=== PATIENT | male | born 1955 | race Caucasian/White ===

== ENCOUNTER → 2016-12-22 | Outpatient (CLI) | payer BC ==
[~2016-12-22] MED LIST: ACET650T67 PO; AMLO5TAB2 PO; ASPI-99 PO; ASPI81TA11 PO; HYDR-3580 PO; MEDI220T PO; OMEP40CA2 PO; PRIN5TAB PO; SIMV20 PO; TOPR25TA2 PO
== END ==
LOC: CPRE 08:44
PROVIDERS: ATTEND Orthopaedic Surgery
DX: Z01.812 Encounter for preprocedural laboratory examination (principal); M17.12 Unilateral primary osteoarthritis, left knee; M79.609 Pain in unspecified limb; I10 Essential (primary) hypertension

== ENCOUNTER 2017-01-02 08:30 | Inpatient (IN) | payer BC ==
[~2017-01-02] VITALS: Ht 188 cm; Wt 114.1 kg
[~2017-01-02 08:30] MED LIST changes: -ASPI-99 PO; -HYDR-3580 PO; -PRIN5TAB PO; -SIMV20 PO; -TOPR25TA2 PO
[2017-01-22] MEDS ORDERED: CHLORHEXIDINE GLUCONATE 2 % 1 PACK (2 CLOTHS) TOPICAL PRN (08:00)
[2017-01-22] MEDS ORDERED: POVIDONE IODINE 5% (ANTISEPSIS KIT) 4 APPLICATIONS EACH NARE PRN (08:00)
[2017-01-22] MEDS ORDERED: LACTATED RINGER'S 1000 ML IV PRN (08:00)
[2017-01-22] MEDS ORDERED: INSULIN HUMAN REGULAR 1,000 UNITS/10 ML VIAL SQ PRN (08:00)
[2017-01-22] MEDS ORDERED: SODIUM CHLORID 0.9% 500 ML IV PRN (08:00)
[2017-01-22] MEDS ORDERED: METOPROLOL TARTRATE 25 MG TAB PO PRN (08:00)
[2017-01-22] MEDS ORDERED: SODIUM CHLORIDE 0.9% IV SCH ×2 (08:15→11:15)
[2017-01-22] MEDS ORDERED: ceFAZolin 2 GM PREMIX 50 ML IV SCH (08:15)
[2017-01-22] MEDS ORDERED: TRANEXAMIC ACID IV SCH ×2 (08:15→11:15)
[2017-01-22] MEDS ORDERED: CHLORHEXIDINE GLUCONATE 4% SOLN 120 ML BTL TOPICAL SCH (08:15)
[2017-01-22 08:34] LABS: AUTOMATED NEUTROPHIL # 6.3 TH/MM3 (1.8-7.7); BASOPHIL # 0.1 TH/MM3 (0-0.2); BASOPHIL % 0.5 % (0.0-2.0); EOSINOPHIL # 0.5 TH/MM3 (0-0.4); EOSINOPHIL % 4.6 % (0.0-4.0); HEMATOCRIT 38.5 % (39.0-51.0); LYMPH % 22.1 % (9.0-44.0); LYMPHOCYTE # 2.2 TH/MM3 (1.0-4.8); MEAN CELL VOLUME 83.2 FL (80.0-100.0); MEAN CORPUSCULAR HEMOGLOBIN 27.9 PG (27.0-34.0); MEAN CORPUSCULAR HGB CONC 33.6 % (32.0-36.0); MONO % 9.2 % (0.0-8.0); NEUT % 63.6 % (16.0-70.0); PLATELET COUNT 250 TH/MM3 (150-450); RED BLOOD COUNT 4.63 MIL/MM3 (4.50-5.90); RED CELL DISTRIBUTION WIDTH 13.6 % (11.6-17.2); WHITE BLOOD COUNT 9.9 TH/MM3 (4.0-11.0)
[2017-01-22 08:36] LABS: HEMO FLAGS AUTO DIFF
[2017-01-22] MEDS ORDERED: GENTAMICIN SULFATE 80 MG/2 ML VIAL ONE (08:42)
[2017-01-22 09:36] LABS: BANDS 9 % (0-6); EOSINOPHILS 3 % (0-4); METAMYELOCYTES 2 % (0-1); NEUTROPHIL # MANUAL DIFF 7.1 TH/MM3 (1.8-7.7); PLATELET ESTIMATE SMEAR NORMAL (NORMAL); PLATELET MORPHOLOGY NORMAL (NORMAL); POLYS (SEG NEUTROPHILS) 61 % (16-70); WBC DIFF SAMPLE 100
[2017-01-22 09:37] LABS: SCAN/DIFF FINAL DIFF MANUAL
[2017-01-22] MEDS ORDERED: SODIUM CHLORIDE 0.9% FLUSH 5 ML FLUSH IVF PRN (09:45)
[2017-01-22] MEDS ORDERED: ONDANSETRON HCL 4 MG/2 ML VIAL IVP PRN (09:45)
[2017-01-22] MEDS ORDERED: ACETAMINOPHEN/HYDROcodone 325 MG/7.5 MG TAB PO PRN (09:45)
[2017-01-22] MEDS ORDERED: TRANEXAMIC ACID INJ 0 MG in SODIUM CHLORIDE 0.9% INJ 100 ML IV SCH (09:45)
[2017-01-22] MEDS ORDERED: Post-op Orders (for Pharmacy) MISC XX ONE (09:45)
[2017-01-22] MEDS ORDERED: MAGNESIUM HYDROXIDE SUSP 30 ML CUP PO PRN (09:45)
[2017-01-22] MEDS ORDERED: MORPHINE SULFATE 4 MG/ML INJ IV PUSH PRN (09:45)
--- NOTE | 2017-01-22 09:46 | HHI.FF ---
Face to Face Verification Diagnosis: (1) Status post total left knee replacement Physical Therapy Gait training Knee: Total knee, Protocol: Left, Gait training, Full weight bearing Left LE Weight Bearing: WB as tolerated Left LE Range of Motion: Active ROM (AROM, AAROM, PROM. ROM goal is 0 to 135 degrees. ROM in OR went to 0 to 140 degrees.) Nursing Nursing: Dressing changes Dressing Changes: Daily dressing change, Coverderm/Primapore Additional Instructions Remove steristrips on postop day 14. I have seen patient Edgard Baxter on 01/22/17. My clinical findings support the need for the requested home health care services because: Ltd mobility - disease progression Limited ability to care for self High risk of falls I certify that my clinical findings support that this patient is homebound because: Post-op weakness Unsteady gait/balance Unsafe to leave home unassisted Anna Charles MD (Charles) Jan 22, 2017 09:46
[2017-01-22] MEDS ORDERED: ASPI-99 PO (09:49)
[2017-01-22] MEDS ORDERED: ACETAMINOPHEN 1000 MG/100 ML 100 ML IV ONE (09:52)
[2017-01-22] MEDS ORDERED: FAMOTIDINE 20 MG/2 ML VIAL ONE (09:52)
[2017-01-22] MEDS: EXPAREL PERI-ARTICULAR INJECTION (TOTAL VOL. 100 ML) P-ARTICULR SCH ×4 (10:32→11:03)
[2017-01-22] MEDS ORDERED: PROPOFOL 200 MG/20 ML AMP ONE (11:43)
[2017-01-22] MEDS ORDERED: PHENYLEPH/NS 1000 MCG/10 ML SYR IV ONE (12:00)
[2017-01-22] MEDS ORDERED: DEXAMETHASONE SOD PHOS 4 MG/ML VIAL IV ONE (12:00)
[2017-01-22] MEDS ORDERED: ePHEDrine/NS 25 MG/5 ML SYR IV ONE (12:00)
[2017-01-22] MEDS ORDERED: PROPOFOL 200 MG/20 ML AMP IV ONE (12:00)
[2017-01-22] MEDS ORDERED: MIDAZOLAM HCL 2 MG/2 ML VIAL IV ONE (12:00)
[2017-01-22] MEDS ORDERED: DO NOT ADM ANY ANTICOAGULANT DRUGS PRN (13:07)
[2017-01-22] MEDS: LACTATED RINGER'S 1000 ML INJ 1,000 ML IV SCH ×2 (13:15→19:58)
[2017-01-22] MEDS ORDERED: *MEPERIDINE 25 MG INJ VIAL PERIprocedural Use ONLY ONE (13:31)
--- NOTE | 2017-01-22 13:33 | MP ---
cc: Grisel HOWE. DATE OF SURGERY 01/22/2017 PREOPERATIVE DIAGNOSIS Primary osteoarthritis left knee. POSTOPERATIVE DIAGNOSIS Primary osteoarthritis left knee. OPERATION PERFORMED Left total knee arthroplasty with [place] Triathlon prosthesis (uncemented). SURGEON Anna Howe MD BRIM POUNCER Reza Michael CSFA ANESTHESIA Spinal with supplemental adductor canal block and local and supplemental general by LMA. INDICATIONS AND FINDINGS This 61-year-old man has had left knee pain for the past 5 years. He had an anterior cruciate ligament tear in 2003 which was treated nonoperatively by another surgeon. He has had progressive increase in pain and has difficulty walking more than about 10 feet because of the pain. He has relief when limiting weightbearing. He has stiffness in the knee, had diffuse pain medially and laterally. He has trouble standing from a seated position and ascending and descending stairs. Treatment has included anti-inflammatory agents, analgesics and activity modification, intraarticular corticosteroid injections, Synvisc injections, bracing, ambulatory aids, physical therapy and weight loss. He has continued to have worsening of his condition in spite of these efforts. Physical findings showed some genu varum with palpable osteophytes medially and tenderness on range of motion with crepitation on range of motion. There is medial laxity. X-rays show loss of joint space to [id number] in the medial compartment with osteophytes medially and in the patellofemoral joint. PROSTHESIS USED [place] Triathlon prosthesis. The femur as a size 8 uncemented. The tibia is a size 8 Tritanium baseplate with a cruciate-retaining X3 polyethylene spacer, 9 mm in thickness. The patella was a size 40 asymmetric Tritanium backed. PROCEDURE The patient was brought to the clean-air operating suite and a spinal anesthetic was administered. He then had an adductor canal block carried out. He was then positioned in a supine position on the operating table with a bolster under the left hip. A pneumatic tourniquet was applied to the left thigh. The limb was then prepped with alcohol, Hibiclens and Chloraprep and draped in the usual manner with the knee draped free. An appropriate time-out procedure was carried out. Local anesthesia was administered in the incision site prior to making the incision. Incision was then made from about three fingerbreadths above the superior medial pole of patella down to the tibial tubercle on the medial side. This was deepened to the retinacular structures which were exposed medially and laterally. Medial retinacular incision was made from the superior and medial pole of the patella down to the tibial tubercle and up into the quadriceps tendon, splitting it longitudinally in the medial one-third. The patella was reflected. The fat pad was debulked. Medial and lateral dissection was carried out. The remnants of the anterior cruciate ligament were excised. Osteophytes were trimmed from the intercondylar notch area. The posterior surface of the patella was excised using the oscillating saw taking care to prevent injury to associated structures. A patella protector was applied. The patella slipped into the lateral gutter. The femur was then prepared using fenestrations first into the distal femur and proximal tibia for intermedullary referencing guides. The distal femoral cutting guide and jig was assembled for a 5-degree, 8-mm cut. This was stabilized with pins. The jig was removed. The distal femoral cut was completed with the oscillating saw. Sizing guide was positioned in place and stabilized with pins along Whitesides line in the epicondylar axis. The size was determined to be a size 8. The four-in-one cutting block was positioned in place and the anterior and posterior cuts were made followed by posterior and anterior chamfer cuts. The remainder of the osteophytes were trimmed from the femur. Following this, medial and lateral meniscectomies were initiated. The proximal tibial cutting guide was then positioned appropriately and stabilized for rotation. The depth of cut was verified with a stylus off the high side. The tibial cutting guide was stabilized with pins. The depth of cut was then verified and adjusted accordingly. The proximal tibial cut was then made after removal of the jig. After completing the proximal tibial cut appropriately, the size was determined to be a size 8 tibia. The tibial baseplate trial with a 9 mm spacer was inserted. The femoral component was impacted into place. The knee was extended. This appeared appropriate. With the knee in extension, the tibial baseplate was stabilized with pins according to appropriate rotation. The patella drill guide was positioned in place for the 40-mm patella. Drill holes were made. The trial patella was then positioned in place. The knee was taken through a range of motion which was easily 0 degrees extension to 140 degrees of flexion with excellent tracking and excellent stability. Femoral drill holes were made. The femur and patella trials were removed. The tibial spacer was removed. The bone plugs were placed in the distal femur and proximal tibia. The tibial punch was impacted through its guide on the tibial baseplate trial. After removing this, the tibial drill guide was positioned in place and drill holes made. The size 8 tibial baseplate was chosen. Cut ends of bone were cleaned with pulse lavage. A baseplate was then impacted into place and seated appropriately after doing curettage and bone grafting of a subchondral cyst posteriorly. The tibial spacer was inserted onto the baseplate. This was seated appropriately. The femoral component was then impacted into place on the distal femur after cleaning with pulse lavage. The patella was likewise positioned on the posterior aspect of the patella and stabilized with the patella vice. The range of motion was checked and was easily 0 degrees extension to 140 degrees of flexion with excellent tracking and excellent stability. Drains were brought out the superior and lateral aspect of the suprapatellar pouch. Wound closure then commenced using 0 Vicryl interrupted [id number] sutures for the retinacular and capsular structures, 2-0 Vicryl interrupted simple sutures with buried knots for the subcutaneous tissues and 4-0 Monocryl continuous subcuticular closure for the skin. The wound was dressed with Steri-Strips followed by dry dressing, sterile Sof-Rol, cooling pad, further sterile Sof-Rol and Tony bandage from the base of the toe to midthigh. The patient was transferred from the operating room to the recovery room in satisfactory condition having tolerated the procedure well. COUNTS Correct. SPECIMENS None. ESTIMATED BLOOD LOSS 250 mL. MD KOSATS Mendoza/DAINA /12:53 PM /1:15 PM
[2017-01-22] MEDS: KETOROLAC TROMETHAMINE 30 MG/ML (IVP) VIAL IVP SCH ×3 (13:35→21:50)
--- NOTE | 2017-01-22 14:15 | RADRPT ---
EXAM DATE/TIME: 01/22/2017 13:49 [facility] COMPARISON: No previous studies available for comparison. INDICATIONS : Post op left knee MEDICAL HISTORY : None. SURGICAL HISTORY : left knee replaced ENCOUNTER: Initial ACUITY: 1 day PAIN SCORE: 7/10 LOCATION: Left knee FINDINGS: Examination of the knee demonstrates arthroplasty in satisfactory position. The alignment is anatomic . CONCLUSION: Post surgical changes as above. Hakeem Santana MD on January 22, 2017 at 14:13 Board Certified Radiologist. This report was verified electronically.
--- NOTE | 2017-01-22 16:59 | PD.CONS ---
HPI Service [facility] Consult Requested By Orthopedic surgery. Reason for Consult Medical management. Primary Care Physician Non-Staff Diagnoses: (1) Primary osteoarthritis of left knee History of Present Illness Mr. Baxter is a pleasant 61 year old male with a history of hypertension, Afib s /p ablation who underwent left total knee arthroplasty. Patient has had left knee pain for several years and despite conservative managements, he continued to have worsening knee pain which led to this elective surgery. Patient was seen in the PACU. Post surgery, he is doing well, hemodynamically stable. No acute concerns. He reports he had atrial fibrillation but underwent ablation and currently does not take any rate control, rhythm control medications. He does not take any anti-coagulation either. Dr. Cote (EP) is his technical lead. He denies any chest pain, SOB, fever, chills. Denies any changes in bowel or bladder habits. Review of Systems Except as stated in HPI: all other systems reviewed are Neg Past Family Social History Allergies: Coded Allergies: Zrtjgov-Een-Aoj Reductase Inhibitor (Verified Allergy, Severe, Cramping, 01/22/17) abdominal cramping and upset lisinopril (Verified Allergy, Severe, Blurred Vision, 01/22/17) simvastatin (Verified Allergy, Severe, Cramping, 01/22/17) abdominal issues Past Medical History Hypertension Afib s/p ablation. Osteoarthritis of the left knee. Past Surgical History Right ring finger surgery. Reported Medications Current Medications Medications (Trade) Dose Ordered Sig/Lucille Route Start Time Stop Time Status Last Admin Lactated Ringer's 1,000 ml @ 30 mls/hr Q24H PRN IV 01/22/17 08:00 01/25/17 07:59 01/22/17 08:00 Sodium Chloride 500 ml @ 30 mls/hr [id number] PRN IV 01/22/17 08:00 01/25/17 07:59 (Lopressor) 25 mg TRAY ROOM WORKER PRN PO 01/22/17 08:00 01/25/17 07:59 (Betadine 5% Antisepsis Kit) 1 applic T[employer] ROOM WORKER PRN EACH NARE 01/22/17 08:00 01/25/17 07:59 01/22/17 08:15 (Chlorhexidine 2% Cloth) 3 pack T[employer]ER PRN TOPICAL 01/22/17 08:00 01/25/17 07:59 01/22/17 07:30 (NovoLIN R INJ) See Protocol Table ... T[employer] ROOM WORKER PRN SQ 01/22/17 08:00 01/25/17 07:59 (Hibiclens 4% Top Soln) 1 applic ONCE TOPICAL 01/22/17 08:15 01/25/17 08:14 01/22/17 08:00 Cefazolin Sodium/ Dextrose 50 ml @ 100 mls/hr TRAY ROOM WORKER IV 01/22/17 08:15 01/25/17 08:14 01/22/17 11:00 Lactated Ringer's 1,000 ml @ 80 mls/hr [id number] IV 01/22/17 09:40 01/22/17 13:15 (NS Flush) 2 ml UNSCH PRN IVF 01/22/17 09:45 (NS Flush) 2 ml BID IVF 01/22/17 21:00 Cefazolin Sodium 1000 mg/Sodium Chloride 100 ml @ 200 mls/hr Q6H IV 01/22/17 16:00 01/23/17 04:29 01/22/17 21:50 (Morphine Inj) 4 mg Q3H PRN IV PUSH 01/22/17 09:45 ([place]ega 7.5-325 Mg) 1 tab Q4H PRN PO 01/22/17 09:45 01/22/17 21:50 (Vega 7.5-325 Mg) 2 tab Q4H PRN PO 01/22/17 09:45 (Toradol Inj) 15 mg Q6H IVP 01/22/17 11:00 01/24/17 05:01 01/22/17 21:50 (Zofran Inj) 4 mg Q6H PRN IVP 01/22/17 09:45 (Colace) 100 mg BID PO 01/23/17 21:00 (Ambien) 5 mg HS PRN PO 01/22/17 21:00 (Milk Of Magnesia Liq) 30 ml DAILY PRN PO 01/22/17 09:45 (Ecotrin Ec) 81 mg BID PO 01/23/17 12:00 (Norvasc) 5 mg BID PO 01/22/17 21:00 01/22/17 20:01 (Protonix) 40 mg DAILY PO 01/23/17 09:00 Miscellaneous Information ALL NURSING DEPARTKS... [facility] PRN .XX 01/22/17 13:07 01/23/17 13:06 Family History Mother currently have breast cancer. Social History Patient denies using tobacco or illicit drugs. He drinks beer occasionally. Physical Exam Vital Signs Vital Signs Date Time Temp Pulse Resp B/P (MAP) Pulse Ox O2 Delivery O2 Flow Rate FiO2 01/22/17 14:00 62 12 136/80 (98) 100 Nasal Cannula 2 01/22/17 13:45 60 12 124/78 (93) 100 Nasal Cannula 2 01/22/17 13:30 69 12 134/69 (90) 97 Nasal Cannula 2 01/22/17 13:15 63 12 100/59 (73) 97 Nasal Cannula 2 01/22/17 13:12 97.6 61 12 105/57 (73) 97 01/22/17 08:19 98.5 73 16 140/83 (102) 98 Physical Exam GENERAL: This is a well-nourished, well-developed patient, in no apparent distress. SKIN: No rashes, ecchymoses or lesions. Warm and dry. HEAD: Atraumatic. Normocephalic. No temporal or scalp tenderness. EYES: Pupils equal round and reactive. No injection or drainage. ENT: Nose without bleeding, purulent drainage or septal hematoma. Airway patent. NECK: Trachea midline. No lymphadenopathy. Supple, nontender, no meningeal signs. CARDIOVASCULAR: Regular rate and rhythm without murmurs, gallops, or rubs. No JVD. RESPIRATORY: Clear to auscultation. Breath sounds equal bilaterally. No wheezes , rales, or rhonchi. GASTROINTESTINAL: Abdomen soft, non-tender, nondistended. No guarding. MUSCULOSKELETAL: Extremities without clubbing, cyanosis, or edema. Left lower ext s/p knee arthroplasty. Able to move all toes. NEUROLOGICAL: Awake and alert. Cranial nerves II through XII intact. No focal neurological deficits. Normal speech. Laboratory Laboratory Tests Test 01/22/17 08:12 White Blood Count 9.9 Red Blood Count 4.63 Hemoglobin 12.9 Hematocrit 38.5 Mean Corpuscular Volume 83.2 Mean Corpuscular Hemoglobin 27.9 Mean Corpuscular Hemoglobin Concent 33.6 Red Cell Distribution Width 13.6 Platelet Count 250 Mean Platelet Volume 8.3 Neutrophils (%) (Auto) 63.6 Lymphocytes (%) (Auto) 22.1 Monocytes (%) (Auto) 9.2 Eosinophils (%) (Auto) 4.6 Basophils (%) (Auto) 0.5 Neutrophils # (Auto) 6.3 Lymphocytes # (Auto) 2.2 Monocytes # (Auto) 0.9 Eosinophils # (Auto) 0.5 Basophils # (Auto) 0.1 CBC Comment AUTO DIFF Differential Total Cells Counted 100 Neutrophils % (Manual) 61 Band Neutrophils % 9 Lymphocytes % 13 Monocytes % 12 Eosinophils % 3 Neutrophils # (Manual) 7.1 Metamyelocytes 2 Differential Comment FINAL DIFF MANUAL Platelet Estimate NORMAL Platelet Morphology Comment NORMAL Red Cell Morphology Comment NORMAL Result Diagram: 01/22/17811 Imaging Last Impressions Knee X-Ray 01/22/17939 Signed Impressions: Service Date/Time: Sunday, January 22, 2017 13:49 - CONCLUSION: Post surgical changes as above. Hakeem Santana MD Assessment and Plan Problem List: (1) Primary osteoarthritis of left knee ICD Code: M17.12 - Unilateral primary osteoarthritis, left knee (2) Hx of atrial fibrillation, no current medication ICD Code: Z86.79 - Personal history of other diseases of the circulatory system (3) HTN (hypertension) ICD Code: I10 - Essential (primary) hypertension Assessment and Plan Mr. Baxter is a pleasant 61 year old male with a history of HTN, Afib s/p ablation who underwent elective left total knee arthroplasty today. Patient is doing well post surgery. - Left knee osteoarthritis - s/p left total knee arthroplasty. - Vega, Morphine PRN for pain. - Bowel regimen ordered. - Aspirin 81mg BID starting 01/23/2017. - Hypertension - Amlodipine 5mg BID. - Currently normotensive. - GERD - continue PPI. - History of Afib s/p Ablation - Follows up with Dr. Cote (EP). - Currently does not require any anti-coagulation or rate/rhythm control meds. Full code. Aspirin. Thank you for the consult. We will continue to follow this patient with you. Jayson Fraser DO Jan 22, 2017 16:59
[2017-01-22 19:15] VITALS: BP 141/82; PULSE 86; RESP 18; TEMP 97.6; O2SAT 96
[2017-01-22] MEDS: amLODIPine BESYLATE 5 MG TAB PO SCH (20:01)
[2017-01-22] MEDS: SODIUM CHLORIDE 0.9% FLUSH 5 ML FLUSH IVF SCH (20:05)
[2017-01-22] MEDS ORDERED: ZOLPIDEM TARTRATE 5 MG TAB PO PRN (21:00)
[2017-01-22] MEDS: ACETAMINOPHEN/HYDROcodone 325 MG/7.5 MG TAB PO PRN (21:50)
[2017-01-22 23:40] VITALS: BP 128/71; PULSE 81; RESP 18; TEMP 98.2; O2SAT 99
[2017-01-23] MEDS: KETOROLAC TROMETHAMINE 30 MG/ML (IVP) VIAL IVP SCH ×2 (03:55→12:40)
[2017-01-23 04:00] VITALS: BP 128/76; PULSE 73; RESP 18; TEMP 97.1
[2017-01-23 05:01] VITALS: BP 128/76; PULSE 73; RESP 18; TEMP 97.1; O2SAT 98
--- NOTE | 2017-01-23 06:25 | PD.ORT.PN ---
Subjective Post Op Day #: 1 Subjective Remarks He was only OOB with PT yesterday. He has not been OOB since then. There is not too much pain. Range of Motion -15 to 90 degrees. Distance Walked 15 sidesteps. Objective Vitals Vital Signs Date Time Temp Pulse Resp B/P (MAP) Pulse Ox O2 Delivery O2 Flow Rate FiO2 01/23/17 04:00 97.1 73 18 128/76 (93) 01/22/17 23:40 98.2 81 18 128/71 (90) 99 01/22/17 19:15 97.6 86 18 141/82 (101) 96 01/22/17 18:30 85 12 127/79 (95) 97 Room Air 01/22/17 17:30 90 12 123/90 (101) 99 Nasal Cannula 2 01/22/17 16:30 98.1 88 12 131/83 (99) 100 Nasal Cannula 2 01/22/17 15:30 73 12 124/76 (92) 99 Nasal Cannula 2 01/22/17 14:30 66 12 117/85 (96) 97 Nasal Cannula 2 01/22/17 14:15 68 12 126/80 (95) 100 Nasal Cannula 2 01/22/17 14:00 62 12 136/80 (98) 100 Nasal Cannula 2 01/22/17 13:45 60 12 124/78 (93) 100 Nasal Cannula 2 01/22/17 13:30 69 12 134/69 (90) 97 Nasal Cannula 2 01/22/17 13:15 63 12 100/59 (73) 97 Nasal Cannula 2 01/22/17 13:12 97.6 61 12 105/57 (73) 97 01/22/17 08:19 98.5 73 16 140/83 (102) 98 I/O 01/22/17 01/22/17 01/22/17 01/23/17 01/23/17 01/23/17 07:00 15:00 23:00 07:00 15:00 23:00 Intake Total 1500 ml 671 ml 1100 ml Output Total 1100 ml 470 ml 20 ml Balance 400 ml 201 ml 1080 ml Intake Oral 360 ml IV Total 311 ml 1100 ml Other 1500 ml Output Urine Total 900 ml 350 ml Drainage Total 120 ml 20 ml Other 200 ml # Bowel Movements 0 Result Diagram: 01/22/17 0812 Imaging Last 24 hours Impressions Knee X-Ray 01/22/17 0940 Signed Impressions: Service Date/Time: Sunday, January 22, 2017 13:49 - CONCLUSION: Post surgical changes as above. Hakeem Santana MD Objective Remarks He is resting comfortably, supine in bed in the CPM. The neurovascular status is intact. The dressing is dry and intact. Assessment & Plan Ortho Post Op Day #: 1 Problem List: (1) Status post total left knee replacement ICD Codes: Z96.652 - Presence of left artificial knee joint Plan: Continue postop care and PT. Assessment and Plan Condition: Good. Orthopaedically stable. DVT prophylaxis: TEDs, sequentials, resume ASA. Discharge plans: Home with [facility]. Has appointment. Rx: [place] 7.5/325. Anna Charles MD (Charles) Jan 23, 2017 06:25
[2017-01-23] MEDS ORDERED: HYDR-3580 PO (06:37)
[2017-01-23 06:59] LABS: HEMATOCRIT 33.4 % (39.0-51.0); REVIEW FLAG FINAL
[2017-01-23 08:00] VITALS: BP 129/74; PULSE 72; RESP 18; TEMP 96.3; O2SAT 97
[2017-01-23] MEDS ORDERED: PANTOPRAZOLE SOD 40 MG DELAYED RELEASE TAB PO SCH (09:00)
[2017-01-23] MEDS: SODIUM CHLORIDE 0.9% FLUSH 5 ML FLUSH IVF SCH (09:00)
[2017-01-23] MEDS: ACETAMINOPHEN/HYDROcodone 325 MG/7.5 MG TAB PO PRN ×2 (09:05→14:39)
[2017-01-23] MEDS: amLODIPine BESYLATE 5 MG TAB PO SCH (09:05)
[2017-01-23] MEDS: LACTATED RINGER'S 1000 ML INJ 1,000 ML IV SCH (10:40)
--- NOTE | 2017-01-23 11:10 | HHI.PR ---
Subjective Remarks Follow-up for left knee osteoarthritis status post left total knee arthroplasty. Patient is currently doing well. No acute concerns. Objective Vitals Vital Signs Date Time Temp Pulse Resp B/P (MAP) Pulse Ox O2 Delivery O2 Flow Rate FiO2 01/23/17 08:00 96.3 72 18 129/74 (92) 97 01/23/17 05:01 97.1 73 18 128/76 (93) 98 01/23/17 04:00 97.1 73 18 128/76 (93) 01/22/17 23:40 98.2 81 18 128/71 (90) 99 01/22/17 19:15 97.6 86 18 141/82 (101) 96 01/22/17 18:30 85 12 127/79 (95) 97 Room Air 01/22/17 17:30 90 12 123/90 (101) 99 Nasal Cannula 2 01/22/17 16:30 98.1 88 12 131/83 (99) 100 Nasal Cannula 2 01/22/17 15:30 73 12 124/76 (92) 99 Nasal Cannula 2 01/22/17 14:30 66 12 117/85 (96) 97 Nasal Cannula 2 01/22/17 14:15 68 12 126/80 (95) 100 Nasal Cannula 2 01/22/17 14:00 62 12 136/80 (98) 100 Nasal Cannula 2 01/22/17 13:45 60 12 124/78 (93) 100 Nasal Cannula 2 01/22/17 13:30 69 12 134/69 (90) 97 Nasal Cannula 2 01/22/17 13:15 63 12 100/59 (73) 97 Nasal Cannula 2 01/22/17 13:12 97.6 61 12 105/57 (73) 97 I/O 01/22/17 01/22/17 01/22/17 01/23/17 01/23/17 01/23/17 07:00 15:00 23:00 07:00 15:00 23:00 Intake Total 1500 ml 671 ml 1100 ml Output Total 1100 ml 470 ml 20 ml 20 ml Balance 400 ml 201 ml 1080 ml -20 ml Intake Oral 360 ml IV Total 311 ml 1100 ml Other 1500 ml Output Urine Total 900 ml 350 ml Drainage Total 120 ml 20 ml 20 ml Other 200 ml # Bowel Movements 0 Result Diagram: 01/23/1718 Imaging Last Impressions Knee X-Ray 01/22/17 0940 Signed Impressions: Service Date/Time: Sunday, January 22, 2017 13:49 - CONCLUSION: Post surgical changes as above. Hakeem Santana MD Objective Remarks GENERAL: Alert, oriented 3, NAD. SKIN: Warm and dry. HEAD: Normocephalic. EYES: No scleral icterus. No injection or drainage. NECK: Supple, trachea midline. No JVD or lymphadenopathy. CARDIOVASCULAR: Regular rate and rhythm without murmurs, gallops, or rubs. RESPIRATORY: Breath sounds equal bilaterally. No accessory muscle use. GASTROINTESTINAL: Abdomen soft, non-tender, nondistended. MUSCULOSKELETAL: No cyanosis, or edema. Left knee s/p surgery. BACK: Nontender without obvious deformity. No CVA tenderness. Procedures Left total knee arthroplasty 01/22/2017. A/P Problem List: (1) Primary osteoarthritis of left knee ICD Code: M17.12 - Unilateral primary osteoarthritis, left knee (2) Hx of atrial fibrillation, no current medication ICD Code: Z86.79 - Personal history of other diseases of the circulatory system (3) HTN (hypertension) ICD Code: I10 - Essential (primary) hypertension Assessment and Plan Mr. Baxter is a pleasant 61 year old male with a history of HTN, Afib s/p ablation who underwent elective left total knee arthroplasty today. Patient is doing well post surgery. - Left knee osteoarthritis - s/p left total knee arthroplasty. - [place], Morphine PRN for pain. - Bowel regimen ordered. - Aspirin 81mg BID starting 01/23/2017. - Hypertension - Amlodipine 5mg BID. - Currently normotensive. - GERD - continue PPI. - History of Afib s/p Ablation - Follows up with Dr. Cote (EP). - Currently does not require any anti-coagulation or rate/rhythm control meds. Full code. Aspirin. Likely discharge home with home health today. Jayson Fraser DO Jan 23, 2017 11:10 am
[2017-01-23 12:00] VITALS: BP 138/72; PULSE 76; RESP 18; TEMP 96.8; O2SAT 97
[2017-01-23] MEDS ORDERED: ASPIRIN EC 81 MG TABEC PO SCH (12:00)
[2017-01-23] MEDS ORDERED: DOCUSATE SODIUM 100 MG CAP PO SCH (21:00)
== END 2017-01-23 15:38 | disposition home health service (06) | DRG 470 ==
LOC: HSDI 01-22 07:03 → N06A 01-22 18:54
PROVIDERS: ADMIT Orthopaedic Surgery; ATTEND Orthopaedic Surgery
PROC: 3E0T3BZ Introduction of Anesthetic Agent into Peripheral Nerves and Plexi, Percutaneous Approach (ICD-10-PCS; 2017-01-22)
PROC: 0SRD0JA Replacement of Left Knee Joint with Synthetic Substitute, Uncemented, Open Approach (ICD-10-PCS; principal; 2017-01-22 09:52)
DX: M17.12 Unilateral primary osteoarthritis, left knee (principal); I10 Essential (primary) hypertension; M21.162 Varus deformity, not elsewhere classified, left knee; M25.762 Osteophyte, left knee; K21.9 Gastro-esophageal reflux disease without esophagitis; Z86.79 Personal history of other diseases of the circulatory system
CPT/HCPCS: 36415; 73560; 85007; 85014; 85018; 85027; 86850; 86900; 86901; 94150; C1776; C9290; J0131; J0690; J1100; J1580; J1885; J2175; J2250; J2370; J3010; J7120